=== PATIENT | male | born 1990 | race Caucasian/White ===

== ENCOUNTER → 2017-06-06 | Outpatient (CLI) | payer OTHER ==
--- NOTE | 2017-06-06 09:52 | RADIOLOGY REPORT (SQ) ---
EXAM DESCRIPTION: U/S LTD DUPLEX ART/DUSTY FLOW; U/S RETROPERITON (RENAL/AORTA) COMPLETED DATE/TIME: 06/06/2017 9:44 am REASON FOR STUDY: HTN/LYNN COMPARISON: None. TECHNIQUE: Realtime and static grayscale images acquired. Selected color Doppler, velocities and spe ctral images recorded. LIMITATIONS: Renal arteries off the aorta were difficult to visualize due to midline bowel gas FINDINGS: RIGHT KIDNEY: RENAL ARTERY VELOCITIES: At the hilum, 59 cm/sec. Segmental artery velocity 42 cm/sec. RENAL VEIN: Color doppler flow present, patent. VELOCITY RATIO: 0.94. Normal waveforms. KIDNEY: 12 cm in length. No cysts, stones, hydronephrosis, or masses. Normal cortical thickness an d echogenicity. LEFT KIDNEY: RENAL ARTERY VELOCITIES: At the hilum, 81 cm/sec. Segmental artery velocity 76 cm/sec. RENAL VEIN: Color doppler flow present, patent. VELOCITY RATIO: 1.3. Normal waveforms. KIDNEY: 12 cm in length. No cysts, stones, hydronephrosis or masses. Normal cortical thickness an d echogenicity. BLADDER: Normal. OTHER: No other significant finding. IMPRESSION: NO DOPPLER EVIDENCE OF HEMODYNAMICALLY SIGNIFICANT RENAL ARTERY STENOSIS. Normal size kidneys with normal renal cortical thickness and echogenicity COMMENT: NORMAL RENAL ARTERY/AORTA VELOCITY RATIO IS LESS THAN OR EQUAL TO 3.5. TECHNICAL DOCUMENTATION: JOB ID: [id number] [employer]- All Rights Reserved
== END ==
LOC: RAD 08:32
DX: I70.1 Atherosclerosis of renal artery (principal)
CPT/HCPCS: 76770; 93976